=== PATIENT | male | born 1945 | race Caucasian/White ===

== ENCOUNTER 2022-11-01 08:12 | Emergency (ER) | payer MEDICARE, OTHER ==
[2022-11-01] MEDS ORDERED: PANTOPRAZOLE 40 MG (PROTONIX) VIAL IV STA (08:31)
[2022-11-01] MEDS ORDERED: NS IV 1000 ML 1,000 ML IV STA ×2 (08:31→11:15)
--- NOTE | 2022-11-01 08:34 | ED GI ---
General Stated Complaint: GI BLEED Source of Information: Patient History of Present Illness Date Seen by Provider: Nov 01, 2022 Time Seen by Provider: 08:12 Initial Comments 77-year-old male presenting from [facility] by EMS after being found this morning with dark-colored emesis and dark tarry stools. Patient had dried dark tarry stool in various areas especially on his legs and groin. He did actively vomit some dark-colored clot appearing emesis. He did tell the nurses that he had a fall yesterday and is complaining of left shoulder pain. He takes Plavix and aspirin for peripheral arterial disease. He also has a history of high blood pressure, dementia, high cholesterol. From review of his paperwork from [facility] he has DNR and he has a power of addiction psychiatrist. He complains of some intermittent epigastric abdominal pain. Timing/Duration: 12-24 Hours Location: Epigastric Associated Symptoms: No Headache; Nausea/Vomiting, Shortness of Air, Weakness Allergies and Home Medications Allergies Coded Allergies: No Known Drug Allergies (Unverified , 11/01/22) Patient Home Medication List Home Medication List Reviewed: Yes Review of Systems Review of Systems Constitutional: weakness EENTM: No Symptoms Reported Respiratory: Shortness of Air Cardiovascular: No Symptoms Reported Gastrointestinal: See HPI, Abdominal Pain (intermittent), Nausea, Rectal Bleeding (melena), Vomiting (dark colored emesis) Genitourinary: No Symptoms Reported Musculoskeletal: no symptoms reported Other Comments Unable to obtain full ROS due to patient having dementia and not able to reliably answer all questions Past Fbfopxe-Uvmwbb-Bbebke Hx Patient Social History Tobacco Use?: No Use of E-Cig and/or Vaping dev: No Substance use?: No Past Medical History Surgery/Hospitalization HX: Dementia, Peripheral arterial disease, Hypertension, BPH, Hyperchlesterolemia, GI Bleed October 2022, COPD Physical Exam Vital Signs Vital Signs - First Documented 11/01/22 08:15 Temp 36.5 Pulse 89 Resp 16 B/P (MAP) 91/52 (65) Pulse Ox 100 O2 Delivery Room Air Capillary Refill : Height/Weight/BMI Height: '" Weight: lbs. oz. kg; BMI Method: General Appearance: other (chronically ill appearing) HEENT: PERRL/EOMI; No pharynx normal (appears to have dried blood on lips and in mouth) Respiratory: lungs clear, no respiratory distress, no accessory muscle use, decreased breath sounds Cardiovascular: normal peripheral pulses, regular rate, rhythm Gastrointestinal: normal bowel sounds, soft, no pulsatile mass; No distended, No guarding, No rebound; tenderness (mild epigastric pain with palpation) Rectal: black stool, heme positive stool Extremities: normal capillary refill, other (complaint of pain with palpation and movement of left shoulder/arm) Neurologic/Psychiatric: alert; No oriented x 3 (oriented to self) Skin: cool, pallor Progress/Results/Core Measures Results/Orders Lab Results Laboratory Tests Test 11/01/22 08:35 11/01/22 10:57 Range/Units White Blood Count 14.7 H 4.3-11.0 10^3/uL Red Blood Count 2.37 L 4.30-5.52 10^6/uL Hemoglobin 7.2 L 13.3-17.7 g/dL Hematocrit 22 L 40-54 % Mean Corpuscular Volume 92 80-99 fL Mean Corpuscular Hemoglobin 30 25-34 pg Mean Corpuscular Hemoglobin Concent 33 32-36 g/dL Red Cell Distribution Width 13.6 10.0-14.5 % Platelet Count 209 130-400 10^3/uL Mean Platelet Volume 9.4 9.0-12.2 fL Immature Granulocyte % (Auto) 3 % Neutrophils (%) (Auto) 81 H 42-75 % Lymphocytes (%) (Auto) 11 L 12-44 % Monocytes (%) (Auto) 5 0-12 % Eosinophils (%) (Auto) 0 0-10 % Basophils (%) (Auto) 0 0-10 % Neutrophils # (Auto) 11.9 H 1.8-7.8 10^3/uL Lymphocytes # (Auto) 1.6 1.0-4.0 10^3/uL Monocytes # (Auto) 0.7 0.0-1.0 10^3/uL Eosinophils # (Auto) 0.1 0.0-0.3 10^3/uL Basophils # (Auto) 0.0 0.0-0.1 10^3/uL Immature Granulocyte # (Auto) 0.4 H 0.0-0.1 10^3/uL Neutrophils % (Manual) 74 % Lymphocytes % (Manual) 13 % Monocytes % (Manual) 2 % Metamyelocytes % 2 % Myelocytes % 1 % Band Neutrophils 7 % Reactive Lymphocytes 1 % Toxic Granulation 2+ Platelet Estimate NORMAL Hypochromasia 1+ Microcytosis 1+ Macrocytosis 1+ Prothrombin Time 15.2 H 12.2-14.7 SEC INR Comment 1.1 0.8-1.4 Activated Partial Thromboplast Time 26 24-35 SEC Sodium Level 138 135-145 MMOL/L Potassium Level 4.6 3.6-5.0 MMOL/L Chloride Level 102 98-107 MMOL/L Carbon Dioxide Level 16 L 21-32 MMOL/L Anion Gap 20 H 5-14 MMOL/L Blood Urea Nitrogen 67 H 7-18 MG/DL Creatinine 2.05 H 0.60-1.30 MG/DL Estimat Glomerular Filtration Rate 32 BUN/Creatinine Ratio 33 Glucose Level 156 H 70-105 MG/DL Calcium Level 9.2 8.5-10.1 MG/DL Corrected Calcium 9.6 8.5-10.1 MG/DL Total Bilirubin 0.4 0.1-1.0 MG/DL Aspartate Amino Transf (AST/SGOT) 28 5-34 U/L Alanine Aminotransferase (ALT/SGPT) 33 0-55 U/L Alkaline Phosphatase 63 40-136 U/L Total Protein 5.7 L 6.4-8.2 GM/DL Albumin 3.5 3.2-4.5 GM/DL Lipase 52 8-78 U/L Urine Color YELLOW Urine Clarity CLEAR Urine pH 5.0 5-9 Urine Specific [place] >=1.030 1.016-1.022 Urine Protein NEGATIVE NEGATIVE Urine Glucose (UA) NEGATIVE NEGATIVE Urine Ketones NEGATIVE NEGATIVE Urine Nitrite NEGATIVE NEGATIVE Urine Bilirubin NEGATIVE NEGATIVE Urine Urobilinogen 0.2 < = 1.0 MG/DL Urine Leukocyte Esterase NEGATIVE NEGATIVE Urine RBC (Auto) TRACE-I H NEGATIVE Urine RBC 0-2 /HPF Urine WBC 0-2 /HPF Urine Squamous Epithelial Cells 0-2 /HPF Urine Crystals NONE /LPF Urine Bacteria NEGATIVE /HPF Urine Casts PRESENT /LPF Urine Hyaline Casts 25-50 H /LPF Urine Coarse Granular Casts 0-2 H /LPF Urine Mucus SMALL H /LPF Urine Culture Indicated NO My Orders Orders - ZULEIMA FRAGA MD Code/Resuscitation (11/01/22 08:28) Comprehensive Metabolic Panel (11/01/22 08:29) Lipase (11/01/22 08:29) Ua Culture If Indicated (11/01/22 08:29) Ed Iv/Invasive Line Start (11/01/22 08:29) Cbc With Automated Diff (11/01/22 08:29) Protime With Inr (11/01/22 08:29) Partial Thromboplastin Time (11/01/22 08:29) Anne Cath (11/01/22 08:29) Ns Iv 1000 Ml (Sodium Chloride 0.9%) (11/01/22 08:31) Pantoprazole Injection (Protonix Injecti (11/01/22 08:31) Ct Head/Cervical Spine Wo (11/01/22 08:34) Chest 1 View Ap/Pa Only (11/01/22 08:34) Shoulder 3 View Left (11/01/22 08:34) Ondansetron Injection (Zofran Injectio (11/01/22 08:39) Ekg Tracing (11/01/22 09:04) Monitor-Rhythm Ecg Trace Only (11/01/22 09:04) Manual Differential (11/01/22 08:35) Ct Abdomen/Pelvis Wo (11/01/22 09:13) Ns Iv 1000 Ml (Sodium Chloride 0.9%) (11/01/22 11:15) Vital Signs/I&O 11/01/22 08:15 Temp 36.5 Pulse 89 Resp 16 B/P (MAP) 91/52 (65) Pulse Ox 100 O2 Delivery Room Air Admisison Planning May Need Admission (Planning): 08:12 Progress Progress Note #1: Progress Note Potential life-threatening diagnosis of acute GI bleeding, peptic ulcer disease with bleeding, colitis, diverticulitis, ischemic bowel. Patient have 1 peripheral IV access from EMS and will have nurses look for second peripheral IV access. Send labs for complete blood count, comprehensive metabolic profile, coagulation factors, lipase, urinalysis. Place Anne catheter to monitor input and output. Initial blood pressure was 105/62. Administer normal saline 1 L IV fluid bolus for hydration, Zofran 4 mg IV for nausea and vomiting, pantoprazole 80 mg IV for GI bleeding. Ordered CT scan of the abdomen and pelvis with IV contrast provided his renal function is good enough to take contrast. CT scan of the head without IV contrast since he reported having a fall yesterday and is taking Plavix and aspirin. Single view chest x-ray looking for acute process with patient complaining of some shortness of breath. Left shoulder x-rays looking for signs of acute fracture or bony abnormality since he reports pain with movement and says that he had a fall yesterday. Progress Note #2: Time: 09:35 Progress Note Blood count shows an elevated white blood cell count of 14.7 with a normal differential. His hemoglobin was low at 7.2 to go with anemia and acute GI bleed. He had normal platelets of 209. There is no previous labs for comparison to know what his baseline hemoglobin is. His comprehensive metabolic profile shows elevated BUN to 67 which could be from dehydration as well as a GI bleed. He also has elevated creatinine to 2.05. Again there is no baseline for comparison. He has mild elevation of his glucose to 156. His lipase and LFTs were in a normal range and not elevated. His coagulation factors were not showing coagulopathy. His blood pressure has been 90 systolic to 105 systolic. With this he still was alert and answering questions. IV fluids continue to infuse as he might be dehydrated as well as having the GI bleeding. I updated his about the patient and findings so far. She said that he did have some vomiting last week and she thought that it was blood but it resolved quickly and he had no further vomiting. He has had issues with dehydration before and usually is admitted to [facility] or [facility]. I advised her that he does appear to be dehydrated in addition to having the GI bleeding currently. She was agreeable to transfusion and medical treatment for his GI bleeding but did request transfer to [place] or [place] if possible since he has records there and it would be closer for her from [place]. I called [facility] transfer line and had to leave a message asking them to call me back about possible admit to [facility] in [place] or [facility] in [place]. 1005 I had not heard back from the transfer nurse at [facility] so I tried calling [facility] directly as I was not sure what sort of bed situation they have there. I spoke with the ED doctor and he advised me that they did not have any ICU beds at [facility] so I would need to check with [facility] or [facility] in [place] as they would not have capability or capacity to take the patient in [facility]. 1009 I called the transfer line back at [facility] and spoke with DEREK Rowan. She apologized for the wait as she had not had a chance to call me back yet. I gave her basic information on the patient about him having GI bleeding and needed ICU or at least telemetry and GI services. She will check with nursing supervisor ride assembly to see if they have beds and if so will have hospitalist call me, otherwise she will call back to let me know they do not have capacity or capability to accept patient in transfer. In the meantime will order additional IV fluids for patient while waiting on a call back and imaging results. Progress Note #3: Time: 10:11 Progress Note My personal interpretation and review of Chest xray shows no effusion but has chronic lung disease consistent with COPD and left shoulder show no acute fracture or dislocation. I did not appreciate acute intracranial hemorrhage or fractures on CT head and cervical spine without contrast. His blood pressure has improved with IVF hydration as he finished having the 1 Liter of NS from EMS infuse and an additional Liter of NS bolus will be started here. He has had no further emesis or melanotic stools since he first arrived in the ED. Blood pressure had gotten down to around 90 systolic but now is 110/62. awaiting call back from [facility] to determine if he can go there or not. Progress Note #4: Time: 10:47 Progress Note D/w Dr. Garcia, hospitalist at [facility]. Reviewed patient presenting with hypotension, tachycardia and acute gi bleeding. He had hemo globin of 7.2 and elevated BUN to 67 that could be from dehydration and GI bleeding. Cr up to 2.05 and unknown baseline. No acute ischemic bowel appearance or acute process on imaging to account for his GI bleeding. he has had improvement in his blood pressure and heart rate with the IVF support. He was not transfused here as we only have uncross matched blood for trauma patient si tuation in addition to his improvement with IV fluid hydration. She accepted him for transfer and will let hospital know so they can get a bed assignment for us. Blood pressure now up to 124-130 over 55-62. Will continue IVF at a maintenance rate after the 2nd L bolus of NS finishes here. Cardiac telemetry monitoring now shows heart rate came down from 110s sinus tachycardia to 80s sinus rhythm. 1115 urinalysis shows elevated specific gravity greater than 1.035. This would go along with dehydration. There is no signs of infection such as nitrites, leukocyte esterase or white blood cells with bacteria. Initial ECG Impression Date: Nov 01, 2022 Initial ECG Impression Time: 11:11 Initial ECG Rate: 87 Initial ECG Rhythm: Normal Sinus Initial ECG Comparisson: No Previous ECG Available Comment My personal interpretation review shows his electrocardiogram has a sinus rhythm with occasional supraventricular premature complexes and a heart rate of 87 bpm. NE interval [address] elevation. QT intervals 385 ms with a QTc interval 429 ms. There is no prior tracing available for comparison. Diagnostic Imaging Diagonstic Imaging: CT Plain Films/CT/US/NM/MRI: c-spine, head Comments [facility] [place] NAME: NAVEEN VERA [facility] REC#: [id number] PT STATUS: REG ER : 1945 PHYSICIAN: ZULEIMA FRAGA MD ADMIT DATE: 11/01/22/ER FS Signed Date of Exam:11/01/22 CT HEAD/CERVICAL SPINE WO PROCEDURE: CT head and CT cervical spine without contrast. TECHNIQUE: Multiple contiguous axial images were obtained through the brain and cervical spine without the use of intravenous contrast. Sagittal and coronal reformations through the cervical spine were then performed. Auto Exposure Controls were utilized during the CT exam to meet ALARA standards for radiation dose reduction. INDICATION: Altered mental status. Fall. Head and neck pain. On blood thinners. COMPARISON: None. FINDINGS: CT HEAD: No large acute territorial ischemia, mass, or hemorrhage. No midline shift or mass effect. Decreased attenuation is seen in the periventricular and subcortical white matter. The ventricles and cortical sulci are prominent. The basilar cisterns are patent and unremarkable. The calvarium is intact. Mucosal thickening is seen in the paranasal sinuses. The mastoid air cells are clear. CT CERVICAL SPINE: No acute fracture or dislocation is seen in the cervical spine. No focal osseous lesions. Vertebral body heights are well-maintained. There is grade 1 anterolisthesis of C4 on C5. The craniocervical junction is well-maintained. Mild degenerative changes are seen in the cervical spine with disc/osteophyte complexes and uncovertebral arthropathy. Soft tissues of the neck are unremarkable. IMPRESSION: 1. No hemorrhage or focal intra-axial mass. No CT evidence of large acute territorial ischemia. 2. No acute fracture or dislocation in the cervical spine. 3. Generalized parenchymal volume loss with scattered chronic microvascular disease. 4. Grade 1 anterolisthesis of C4 on C5. 5. Paranasal sinus disease. Dictated by: Dictated on workstation # [id number] Dict: 11/01/22 1000 Trans: 11/01/22 1005 [id number] Interpreted by: KADI CHOI DO Electronically signed by: KADI CHOI DO 11/01/22 1005 Reviewed: Reviewed by Az Diagonstic Imaging: Xray Plain Films/CT/US/NM/MRI: chest Comments [facility] [place] NAME: NAVEEN VERA [facility] REC#: [id number] PT STATUS: REG ER : 1945 PHYSICIAN: ZULEIMA FRAGA MD ADMIT DATE: 11/01/22/ER FS Draft Date of Exam:11/01/22 CHEST 1 VIEW AP/PA ONLY CLINICAL INDICATION: Patient with shortness of breath and vomiting blood. EXAM: Portable chest x-ray, upright view. COMPARISON: None. FINDINGS: Lungs/pleura: There are amorphous patchy airspace opacities involving both lung bases which may represent atelectasis versus infiltrates. There are sutures overlying the right upper lobe region. There is no pneumothorax. There is no pleural effusion. Mediastinum: Unremarkable. Pulmonary vasculature: Unremarkable. Heart: Unremarkable. Bones/extrathoracic soft tissue: There are degenerative spurs involving the thoracic spine. IMPRESSION: There are amorphous airspace opacities in both lung bases, likely representing atelectasis versus infiltrates. Dictated on workstation # [id number] Dict: 11/01/22 1004 Trans: 11/01/22 1007 [id number] Interpreted by: GABRIELLE SOSA MD Electronically signed by: Reviewed: Reviewed by Az Diagonstic Imaging: CT Plain Films/CT/US/NM/MRI: abdomen, pelvis Comments [email or web address] [place] [place] NAME: NAVEEN VERA [facility] REC#: [id number] PT STATUS: REG ER : 1945 PHYSICIAN: ZULEIMA FRAGA MD ADMIT DATE: 11/01/22/ER FS Draft Date of Exam:11/01/22 CT ABDOMEN/PELVIS WO PROCEDURE: CT abdomen and pelvis without contrast. TECHNIQUE: Multiple contiguous axial images were obtained through the abdomen and pelvis without the use of intravenous contrast. Auto Exposure Controls were utilized during the CT exam to meet ALARA standards for radiation dose reduction. INDICATION: Melena. Hematemesis. Epigastric pain. COMPARISON: None. FINDINGS: Examination is limited by respiratory motion. Emphysematous changes in the lung bases. Low attenuating blood pool, consistent with anemia. Indeterminate hypoenhancing lesion in the hepatic dome measuring up to 1.8 cm. Calcified granulomas in the spleen. Aortobiiliac stent graft. Urinary bladder is decompressed by a Anne catheter. The gallbladder, pancreas, adrenals, kidneys, and collecting systems are negative on this noncontrast exam. The appendix is not identified and may be surgically absent. No suspicious inflammatory findings in the region of the cecum. No free intraperitoneal air or fluid. No lymphadenopathy. No evidence of bowel obstruction. No acute osseous findings. Spondylotic changes likely result in multilevel high-grade spinal canal stenosis. IMPRESSION: 1. No acute CT findings in the abdomen or pelvis. 2. Indeterminate hypoattenuating lesion in the hepatic dome may represent a benign cyst or hemangioma but is incompletely characterized on this exam. Given the motion, it is hard to determine if this is well-circumscribed and a metastatic lesion could not be excluded. This could be further evaluated with ultrasound. 3. Hypoattenuating blood pool, consistent with anemia. Dictated on workstation # [id number] Dict: 11/01/22 1003 Trans: 11/01/22 1011 [id number] Interpreted by: ALMA HERNÁNDEZ MD Electronically signed by: Reviewed: Reviewed by Me Diagonstic Imaging: Xray Plain Films/CT/US/NM/MRI: other (Left shoulder) Comments [facility] [place] NAME: NAVEEN VERA [facility] REC#: [id number] PT STATUS: REG ER : 1945 PHYSICIAN: ZULEIMA FRAGA MD ADMIT DATE: 11/01/22/ER FS Draft Date of Exam:11/01/22 SHOULDER 3 VIEW LEFT CLINICAL INDICATION: Patient reported a fall last night with pain in the shoulder. EXAM: X-ray of the left shoulder, 3 views. COMPARISON: None. FINDINGS: There is no acute fracture or dislocation. There are moderately hypertrophic spurs involving the left acromioclavicular region. There are subacromial spurs. There is spurring of the inferior glenoid region and proximal humeral head/neck junction region. IMPRESSION: There is degenerative disease involving the left shoulder with no acute fracture or dislocation. Dictated on workstation # [id number] Dict: 11/01/22 1006 Trans: 11/01/22 1009 [id number] Interpreted by: GABRIELLE SOSA MD Electronically signed by: Reviewed: Reviewed by Me Critical Care Note Critical Care Total Time (minutes) 45 minutes Progress I spent at least 45 minutes in direct critical care time with the patient. Time excludes separately billable procedures. Time spent obtaining history from patient, custodial, EMS, spouse, ordering tests and reviewing results, ordering interventions and reviewing response, discussion with consultants, documentation in the chart. Patient was at risk of cardiopulmonary arrest with his acute GI bleeding and required my immediate direct care to help stabilize the patient and monitor for worsening condition. Departure Impression Primary Impression: Acute gastrointestinal bleeding Additional Impressions: Black tarry stools Hematemesis Qualified Codes: K92.0 - Hematemesis Disposition: XF [facility] Condition: Critical Transfer Transfer Reason: Exceeds level of care (No closer facilities with GI capabilities and ICU beds) Time Spoke to Accepting Phy: 10:47 Transfer Progress Notes D/w Dr. Garcia, hospitalist at [facility]. Reviewed patient presenting with hypotension, tachycardia and acute gi bleeding. He had hemoglobin of 7.2 and elevated BUN to 67 that could be from dehydration and GI bleeding. Cr up to 2.05 and unknown baseline. No acute ischemic bowel appearance or acute process on imaging to account for his GI bleeding. he has had improvement in his blood pressure and heart rate with the IVF support. He was not transfused here as we only have uncross matched blood for trauma patient situation in addition to his improvement with IV fluid hydration. She accepted him for transfer and will let hospital know so they can get a bed assignment for us. Transfer Facility: [facility] Method of Transfer: EMS ZULEIMA FRAGA MD Nov 01, 2022 08:34
[2022-11-01] MEDS ORDERED: ONDANSETRON 4 MG/2 ML (SDV) Z0FRAN IVP STA (08:39)
[2022-11-01 08:47] LABS: BASOPHILS % (AUTO) 0 % (0-10); EOSINOPHILS # (AUTO) 0.1 10^3/uL (0.0-0.3); EOSINOPHILS % (AUTO) 0 % (0-10); HEMATOCRIT 22 % (40-54); HEMOGLOBIN 7.2 g/dL (13.3-17.7); LYMPHOCYTES # (AUTO) 1.6 10^3/uL (1.0-4.0); LYMPHOCYTES % (AUTO) 11 % (12-44); MEAN CORPUSCULAR HEMOGLOBIN 30 pg (25-34); MEAN CORPUSCULAR HGB CONC 33 g/dL (32-36); MEAN CORPUSCULAR VOLUME 92 fL (80-99); MEAN PLATELET VOLUME 9.4 fL (9.0-12.2); MONOCYTES # (AUTO) 0.7 10^3/uL (0.0-1.0); MONOCYTES % (AUTO) 5 % (0-12); NEUTROPHILS # (AUTO) 11.9 10^3/uL (1.8-7.8); NEUTROPHILS % (AUTO) 81 % (42-75); PLATELET COUNT 209 10^3/uL (130-400); WHITE BLOOD COUNT 14.7 10^3/uL (4.3-11.0)
[2022-11-01 09:05] LABS: INR 1.1 (0.8-1.4); PROTHROMBIN TIME PATIENT 15.2 SEC (12.2-14.7)
[2022-11-01 09:08] LABS: BILIRUBIN,TOTAL 0.4 MG/DL (0.1-1.0); CALCIUM 9.2 MG/DL (8.5-10.1); CREATININE SERUM 2.05 MG/DL (0.60-1.30); POTASSIUM 4.6 MMOL/L (3.6-5.0)
[2022-11-01 09:09] LABS: ALBUMIN 3.5 GM/DL (3.2-4.5); TOTAL PROTEIN 5.7 GM/DL (6.4-8.2)
[2022-11-01 09:22] LABS: BAND NEUTROPHILS 7 %; LYMPHOCYTES % (MANUAL) 13 %; METAMYELOCYTES % 2 %; MONOCYTES % (MANUAL) 2 %; MYELOCYTES % 1 %; NEUTROPHILS % (MANUAL) 74 %; REACTIVE LYMPHOCYTES 1 %
[2022-11-01 09:23] LABS: HYPOCHROMASIA 1+; MICROCYTOSIS 1+; PLATELET ESTIMATE NORMAL; TOXIC GRANULATION/VACUOLAZATIO 2+
--- NOTE | 2022-11-01 10:04 | Diagnostic Imaging Report ---
PROCEDURE: CT head and CT cervical spine without contrast. TECHNIQUE: Multiple contiguous axial images were obtained through the brain and cervical spine without the use of intravenous contrast. Sagittal and coronal reformations through the cervical spine were then performed. Auto Exposure Controls were utilized during the CT exam to meet ALARA standards for radiation dose reduction. INDICATION: Altered mental status. Fall. Head and neck pain. On blood thinners. COMPARISON: None. FINDINGS: CT HEAD: No large acute territorial ischemia, mass, or hemorrhage. No midline shift or mass effect. Decreased attenuation is seen in the periventricular and subcortical white matter. The ventricles and cortical sulci are prominent. The basilar cisterns are patent and unremarkable. The calvarium is intact. Mucosal thickening is seen in the paranasal sinuses. The mastoid air cells are clear. CT CERVICAL SPINE: No acute fracture or dislocation is seen in the cervical spine. No focal osseous lesions. Vertebral body heights are well-maintained. There is grade 1 anterolisthesis of C4 on C5. The craniocervical junction is well-maintained. Mild degenerative changes are seen in the cervical spine with disc/osteophyte complexes and uncovertebral arthropathy. Soft tissues of the neck are unremarkable. IMPRESSION: 1. No hemorrhage or focal intra-axial mass. No CT evidence of large acute territorial ischemia. 2. No acute fracture or dislocation in the cervical spine. 3. Generalized parenchymal volume loss with scattered chronic microvascular disease. 4. Grade 1 anterolisthesis of C4 on C5. 5. Paranasal sinus disease. Dictated by: Dictated on workstation # [id number]
--- NOTE | 2022-11-01 10:08 | Diagnostic Imaging Report ---
CLINICAL INDICATION: Patient with shortness of breath and vomiting blood. EXAM: Portable chest x-ray, upright view. COMPARISON: None. FINDINGS: Lungs/pleura: There are amorphous patchy airspace opacities involving both lung bases which may represent atelectasis versus infiltrates. There are sutures overlying the right upper lobe region. There is no pneumothorax. There is no pleural effusion. Mediastinum: Unremarkable. Pulmonary vasculature: Unremarkable. Heart: Unremarkable. Bones/extrathoracic soft tissue: There are degenerative spurs involving the thoracic spine. IMPRESSION: There are amorphous airspace opacities in both lung bases, likely representing atelectasis versus infiltrates. Dictated by: Dictated on workstation # [id number]
--- NOTE | 2022-11-01 10:10 | Diagnostic Imaging Report ---
CLINICAL INDICATION: Patient reported a fall last night with pain in the shoulder. EXAM: X-ray of the left shoulder, 3 views. COMPARISON: None. FINDINGS: There is no acute fracture or dislocation. There are moderately hypertrophic spurs involving the left acromioclavicular region. There are subacromial spurs. There is spurring of the inferior glenoid region and proximal humeral head/neck junction region. IMPRESSION: There is degenerative disease involving the left shoulder with no acute fracture or dislocation. Dictated by: Dictated on workstation # [id number]
--- NOTE | 2022-11-01 10:12 | Diagnostic Imaging Report ---
PROCEDURE: CT abdomen and pelvis without contrast. TECHNIQUE: Multiple contiguous axial images were obtained through the abdomen and pelvis without the use of intravenous contrast. Auto Exposure Controls were utilized during the CT exam to meet ALARA standards for radiation dose reduction. INDICATION: Melena. Hematemesis. Epigastric pain. COMPARISON: None. FINDINGS: Examination is limited by respiratory motion. Emphysematous changes in the lung bases. Low attenuating blood pool, consistent with anemia. Indeterminate hypoenhancing lesion in the hepatic dome measuring up to 1.8 cm. Calcified granulomas in the spleen. Aortobiiliac stent graft. Urinary bladder is decompressed by a Anne catheter. The gallbladder, pancreas, adrenals, kidneys, and collecting systems are negative on this noncontrast exam. The appendix is not identified and may be surgically absent. No suspicious inflammatory findings in the region of the cecum. No free intraperitoneal air or fluid. No lymphadenopathy. No evidence of bowel obstruction. No acute osseous findings. Spondylotic changes likely result in multilevel high-grade spinal canal stenosis. IMPRESSION: 1. No acute CT findings in the abdomen or pelvis. 2. Indeterminate hypoattenuating lesion in the hepatic dome may represent a benign cyst or hemangioma but is incompletely characterized on this exam. Given the motion, it is hard to determine if this is well-circumscribed and a metastatic lesion could not be excluded. This could be further evaluated with ultrasound. 3. Hypoattenuating blood pool, consistent with anemia. Dictated by: Dictated on workstation # [id number]
[2022-11-01 11:01] LABS: BILIRUBIN,URINE NEGATIVE (NEGATIVE); CLARITY,URINE CLEAR; COLOR,URINE YELLOW; GLUCOSE, URINE (UA) NEGATIVE (NEGATIVE); KETONES,URINE NEGATIVE (NEGATIVE); LEUKOCYTE ESTERASE ,URINE NEGATIVE (NEGATIVE); NITRITE,URINE NEGATIVE (NEGATIVE); PROTEIN,URINE NEGATIVE (NEGATIVE)
[2022-11-01 11:11] LABS: BACTERIA,URINE NEGATIVE /HPF; HYALINE CASTS, URINE 25-50 /LPF; RBC,URINE 0-2 /HPF; SQUAMOUS EPITHELIAL CELL,UR 0-2 /HPF; WBC,URINE 0-2 /HPF
[2022-11-01 12:07] VITALS: BP 104/56
== END 2022-11-01 12:29 | disposition short-term general hospital (02) ==
LOC: ER FS 08:22
DX: K92.0 Hematemesis (principal); K92.1 Melena; D72.829 Elevated white blood cell count, unspecified; D64.9 Anemia, unspecified; R00.0 Tachycardia, unspecified; R03.0 Elevated blood-pressure reading, without diagnosis of hypertension; R79.89 Other specified abnormal findings of blood chemistry; I73.9 Peripheral vascular disease, unspecified; Z79.82 Long term (current) use of aspirin; Z79.02 Long term (current) use of antithrombotics/antiplatelets
CPT/HCPCS: 36415; 51702; 70450; 71045; 72125; 73030; 74176; 80053; 81000; 83690; 85007; 85027; 85610; 85730; 93005; 93041

== ENCOUNTER 2023-01-23 17:31 | Emergency (ER) | payer MEDICARE ==
[~2023-01-23] VITALS: Ht 182.8 cm; Wt 75.0 kg
[2023-01-23 17:51] LABS: BASOPHILS % (AUTO) 1 % (0-10); EOSINOPHILS # (AUTO) 0.9 10^3/uL (0.0-0.3); EOSINOPHILS % (AUTO) 13 % (0-10); HEMATOCRIT 36 % (40-54); HEMOGLOBIN 11.5 g/dL (13.3-17.7); LYMPHOCYTES # (AUTO) 1.6 10^3/uL (1.0-4.0); LYMPHOCYTES % (AUTO) 24 % (12-44); MEAN CORPUSCULAR HEMOGLOBIN 28 pg (25-34); MEAN CORPUSCULAR HGB CONC 32 g/dL (32-36); MEAN CORPUSCULAR VOLUME 88 fL (80-99); MEAN PLATELET VOLUME 8.9 fL (9.0-12.2); MONOCYTES # (AUTO) 0.7 10^3/uL (0.0-1.0); MONOCYTES % (AUTO) 10 % (0-12); NEUTROPHILS # (AUTO) 3.5 10^3/uL (1.8-7.8); NEUTROPHILS % (AUTO) 52 % (42-75); PLATELET COUNT 123 10^3/uL (130-400); WHITE BLOOD COUNT 6.7 10^3/uL (4.3-11.0)
[2023-01-23 17:53] LABS: BILIRUBIN,URINE NEGATIVE (NEGATIVE); CLARITY,URINE CLEAR; COLOR,URINE YELLOW; GLUCOSE, URINE (UA) NEGATIVE (NEGATIVE); KETONES,URINE NEGATIVE (NEGATIVE); LEUKOCYTE ESTERASE ,URINE NEGATIVE (NEGATIVE); NITRITE,URINE NEGATIVE (NEGATIVE); PROTEIN,URINE NEGATIVE (NEGATIVE)
--- NOTE | 2023-01-23 17:55 | ED General ---
General Chief Complaint: General Problems/Pain Stated Complaint: FALL Source of Information: Patient, EMS History of Present Illness Date Seen by Provider: Jan 23, 2023 Time Seen by Provider: 17:31 Initial Comments 77-year-old male presenting by EMS from [facility] after he was found unresponsive on the floor where he had slid out of his chair. EMS reports that he was starting to respond when they arrived on scene but that he was not speaking initially. In route to the emergency department he did start to speak. Initially his pupils were pinpoint for EMS but are now normal and responsive. They did administer a dose of Narcan in case he had any opiates on board. That did not seem to make any change with his mentation and alertness. No obvious trauma on exam of the patient. He has dementia and is answering questions but is not consistent with his answers. Location Injury Occurred: [facility] Timing/Duration: 1/2 Hour Associated Systoms: No Chest Pain, No Cough, No Diaphoresis, No Fever/Chills, No Headaches, No Loss of Appetite, No Malaise, No Nausea/Vomiting, No Rash, No Shortness of Air Allergies and Home Medications Allergies Coded Allergies: No Known Drug Allergies (Unverified , 11/01/22) Patient Home Medication List Home Medication List Reviewed: Yes Review of Systems Review of Systems Constitutional: No chills, No fever EENTM: no symptoms reported Respiratory: no symptoms reported Cardiovascular: no symptoms reported Gastrointestinal: no symptoms reported Genitourinary: incontinence (incontinent of urine on presentation of EMS) Musculoskeletal: no symptoms reported Skin: no symptoms reported Psychiatric/Neurological: See HPI Past Ofpuxnb-Leoydl-Dunadp Hx Patient Social History Tobacco Use?: No Use of E-Cig and/or Vaping dev: No Substance use?: No Alcohol Use?: No Past Medical History Surgery/Hospitalization HX: Dementia, Peripheral arterial disease, Hypertension, BPH, Hyperchlesterolemia, GI Bleed October 2022, COPD Physical Exam Vital Signs Vital Signs - First Documented 01/23/23 17:31 Temp 36.3 Pulse 12 Resp 62 B/P (MAP) 143/66 (91) Pulse Ox 95 O2 Delivery Room Air Capillary Refill : Height, Weight, BMI Height: '" Weight: lbs. oz. kg; BMI Method: General Appearance: No Apparent Distress, WD/WN HEENT: PERRL/EOMI, Pharynx Normal Neck: Full Range of Motion, Normal Inspection, Non Tender, Supple Respiratory: Chest Non Tender, Lungs Clear, Normal Breath Sounds, No Accessory Muscle Use, No Respiratory Distress Cardiovascular: Regular Rate, Rhythm, Normal Peripheral Pulses Gastrointestinal: Normal Bowel Sounds, No Pulsatile Mass, Non Tender, Soft Rectal: Deferred Extremity: Normal Capillary Refill, Normal Inspection, No Pedal Edema Neurologic/Psychiatric: Alert; No Oriented x3 (oriented to self only); Normal Mood/Affect, psychopaedic nurse II-XII Norm as Tested Skin: Normal Color, Warm/Dry Progress/Results/Core Measures Suspected Sepsis SIRS Temperature: Pulse: Respiratory Rate: Laboratory Tests 01/23/23 17:40: White Blood Count 6.7 Blood Pressure / Mean: Laboratory Tests 01/23/23 17:40: Creatinine 1.27, INR Comment 1.0, Platelet Count 123L, Total Bilirubin 0.4 Results/Orders Lab Results Laboratory Tests Test 01/23/23 17:38 01/23/23 17:40 Range/Units Urine Color YELLOW Urine Clarity CLEAR Urine pH 6.0 5-9 Urine Specific [place] 1.015 L 1.016-1.022 Urine Protein NEGATIVE NEGATIVE Urine Glucose (UA) NEGATIVE NEGATIVE Urine Ketones NEGATIVE NEGATIVE Urine Nitrite NEGATIVE NEGATIVE Urine Bilirubin NEGATIVE NEGATIVE Urine Urobilinogen 1.0 < = 1.0 MG/DL Urine Leukocyte Esterase NEGATIVE NEGATIVE Urine RBC (Auto) 2+ H NEGATIVE Urine RBC 10-25 H /HPF Urine WBC 0-2 /HPF Urine Renal Epithelial Cells 2-5 /HPF Urine Crystals NONE /LPF Urine Bacteria NEGATIVE /HPF Urine Casts NONE /LPF Urine Mucus SMALL H /LPF Urine Culture Indicated NO Urine Opiates Screen NEGATIVE NEGATIVE Urine Oxycodone Screen NEGATIVE NEGATIVE Urine Methadone Screen NEGATIVE NEGATIVE Urine Propoxyphene Screen NEGATIVE NEGATIVE Urine Barbiturates Screen NEGATIVE NEGATIVE Ur Tricyclic Antidepressants Screen NEGATIVE NEGATIVE Urine Phencyclidine Screen NEGATIVE NEGATIVE Urine Amphetamines Screen NEGATIVE NEGATIVE Urine Methamphetamines Screen NEGATIVE NEGATIVE Urine Benzodiazepines Screen NEGATIVE NEGATIVE Urine Cocaine Screen NEGATIVE NEGATIVE Urine Cannabinoids Screen NEGATIVE NEGATIVE White Blood Count 6.7 4.3-11.0 10^3/uL Red Blood Count 4.09 L 4.30-5.52 10^6/uL Hemoglobin 11.5 L 13.3-17.7 g/dL Hematocrit 36 L 40-54 % Mean Corpuscular Volume 88 80-99 fL Mean Corpuscular Hemoglobin 28 25-34 pg Mean Corpuscular Hemoglobin Concent 32 32-36 g/dL Red Cell Distribution Width 13.8 10.0-14.5 % Platelet Count 123 L 130-400 10^3/uL Mean Platelet Volume 8.9 L 9.0-12.2 fL Immature Granulocyte % (Auto) 0 % Neutrophils (%) (Auto) 52 42-75 % Lymphocytes (%) (Auto) 24 12-44 % Monocytes (%) (Auto) 10 0-12 % Eosinophils (%) (Auto) 13 H 0-10 % Basophils (%) (Auto) 1 0-10 % Neutrophils # (Auto) 3.5 1.8-7.8 10^3/uL Lymphocytes # (Auto) 1.6 1.0-4.0 10^3/uL Monocytes # (Auto) 0.7 0.0-1.0 10^3/uL Eosinophils # (Auto) 0.9 H 0.0-0.3 10^3/uL Basophils # (Auto) 0.0 0.0-0.1 10^3/uL Immature Granulocyte # (Auto) 0.0 0.0-0.1 10^3/uL Neutrophils % (Manual) 46 % Lymphocytes % (Manual) 26 % Monocytes % (Manual) 9 % Eosinophils % (Manual) 15 % Basophils % (Manual) 1 % Band Neutrophils 3 % Platelet Estimate DECREASED Percent Immature Platelet Fraction 1.8 0.0-7.6 % Hypochromasia 1+ Crenated Cell SLIGHT Prothrombin Time 13.7 12.2-14.7 SEC INR Comment 1.0 0.8-1.4 Activated Partial Thromboplast Time 28 24-35 SEC Sodium Level 139 135-145 MMOL/L Potassium Level 4.2 3.6-5.0 MMOL/L Chloride Level 106 98-107 MMOL/L Carbon Dioxide Level 22 21-32 MMOL/L Anion Gap 11 5-14 MMOL/L Blood Urea Nitrogen 19 H 7-18 MG/DL Creatinine 1.27 0.60-1.30 MG/DL Estimat Glomerular Filtration Rate 57 BUN/Creatinine Ratio 15 Glucose Level 108 H 70-105 MG/DL Calcium Level 9.1 8.5-10.1 MG/DL Corrected Calcium 9.3 8.5-10.1 MG/DL Total Bilirubin 0.4 0.1-1.0 MG/DL Aspartate Amino Transf (AST/SGOT) 17 5-34 U/L Alanine Aminotransferase (ALT/SGPT) 17 0-55 U/L Alkaline Phosphatase 99 40-136 U/L Troponin I < 0.30 <0.30 NG/ML Total Protein 6.1 L 6.4-8.2 GM/DL Albumin 3.7 3.2-4.5 GM/DL Salicylates Level < 0.3 L 5.0-20.0 MG/DL Acetaminophen Level < 10 L 10-30 UG/ML Serum Alcohol < 10 <10 MG/DL My Orders Orders - ZULEIMA FRAGA MD Ua Culture If Indicated (01/23/23 17:36) Cbc With Automated Diff (01/23/23 17:36) Comprehensive Metabolic Panel (01/23/23 17:36) Alcohol (01/23/23 17:36) Drug Screen Stat (Urine) (01/23/23 17:36) Acetaminophen (01/23/23 17:36) Salicylate (01/23/23 17:36) Ekg Tracing (01/23/23 17:36) Ed Iv/Invasive Line Start (01/23/23 17:36) Monitor-Rhythm Ecg Trace Only (01/23/23 17:36) Ct Head Wo (01/23/23 17:36) Straight Cath For Spec.-Adult (01/23/23 17:36) Seizure Precautions (01/23/23 17:36) Manual Differential (01/23/23 17:40) Troponin I Fs (01/23/23 18:05) Protime With Inr (01/23/23 18:05) Partial Thromboplastin Time (01/23/23 18:05) Vital Signs/I&O 01/23/23 01/23/23 17:31 19:01 Temp 36.3 Pulse 12 66 Resp 62 19 B/P (MAP) 143/66 (91) 152/83 Pulse Ox 95 99 O2 Delivery Room Air Room Air Capillary Refill : Progress Note #1: Progress Note Potential diagnosis of syncope, seizure, UTI, vasovagal episode, GI bleed, pneumonia, myocardial infarction. Patient is alert and talking on arrival to the emergency department. Per EMS this is a steady improvement in his mentation and alertness since the arrived on scene at the skilled nursing. He does have dementia and is oriented to self only. He has his son is a [employer] and has a DNR order. He does not have any obvious signs of trauma or injury on exam. Will follow seizure precautions here in the emergency department. Since he was incontinent and unresponsive initially for skilled nursing staff he might have had a seizure or he could have had a syncopal episode. Placed on cardiac battery starter and patient's heart rate sinus rhythm at 60 bpm. Obtain electrocardiogram to further evaluate his rate and rhythm. Order CT scan of the head without contrast to evaluate for any acute pathology to account for his symptoms. EMS had established an IV in route to the ED. Draw labs for complete blood count, comprehensive metabolic profile, alcohol, acetaminophen, salicylate, urinalysis, urine drug screen. Perform a straight cath to obtain urinalysis since the patient had been incontinent and did not have much urine present. Also with his dementia will be difficult to have him provide a clean-catch urine. He was afebrile on arrival to the ED and his blood pressure was normal. Progress Note #2: Time: 18:07 Progress Note Complete blood count does not show elevated WBC count as it is 6.7. Hemoglobin with anemia at 11.5. UA shows a normal specific gravity of 1.015. He has 10-25 red blood cells likely from the catheter used to obtain specimen. There is no bacteria, leukocyte esterase, nitrites indicate an infection. My personal interpretation and review the CT scan of the head does not show any acute bleed or mass. Progress Note #3: Time: 18:46 Progress Note Comprehensive metabolic profile did not show any acute significant electrolyte abnormality. He had mild elevation of his BUN to 19 and creatinine to 1.27. His glucose was normal at 108. Troponin was negative at less than 0.3. Aspirin level was less than 0.3. Alcohol and Tylenol were both less than 10. Coagulation factors were normal without elevation of coagulopathy. Patient had no acute abnormalities on the CT scan of the head according to the radiologist report. Patient has remained alert and responsive at his baseline here in the emergency department. This may have been a vasovagal episode with him having a full bladder. He might of had a seizure but there is no evidence of any injury on exam such as bite yanez on tongue. Will discharge back to [facility] and encourage follow up with pcp for continued concerns. ECG Initial ECG Impression Date: Jan 23, 2023 Initial ECG Impression Time: 17:48 Initial ECG Rate: 58 Initial ECG Rhythm: Normal Sinus Initial ECG Comparisson: Unchanged (similar to 11/01/2022 tracing) Comment Also personal interpretation and review the electrocardiogram shows sinus rhythm with a heart rate of 58 bpm. AR interval [address] elevation. QT interval 422 ms with a QTc interval 420 ms. Overall appears similar to tracing from November 01, 2022. Diagnostic Imaging Diagonstic Imaging: CT Plain Films/CT/US/NM/MRI: head Comments NAME: NAVEEN VERA [facility] REC#: [id number] PT STATUS: REG ER : 1945 PHYSICIAN: ZULEIMA FRAGA MD ADMIT DATE: 01/23/23/ER FS Signed Date of Exam:01/23/23 CT HEAD WO PROCEDURE: CT head without contrast. TECHNIQUE: Multiple contiguous axial images were obtained through the brain without the use of intravenous contrast. Auto Exposure Controls were utilized during the CT exam to meet ALARA standards for radiation dose reduction. DATE: January 23, 2023. COMPARISON: CT head and cervical spine November 01, 2022. INDICATION: 77-year-old male, unresponsive. Seizure. FINDINGS: There is proportional prominence of the ventricles and additional CSF spaces compatible with moderate to severe cerebral volume loss. There is no mass effect or midline shift. There is no acute intracranial hemorrhage. There is no abnormal extra-axial fluid collection. There is nonspecific opacification in the bilateral ethmoidal air cells. There is mucosal thickening of both maxillary sinuses. The mastoid air cells and middle ears are well-aerated bilaterally. IMPRESSION: 1. No identified acute intracranial abnormality. 2. Moderate to severe cerebral volume loss. 3. Nonspecific paranasal sinus opacification. Dictated by: Dictated on workstation # [id number] Dict: 01/23/231802 Trans: 01/23/231815 [facility] [id number] Interpreted by: DARCIE JASSO MD Electronically signed by: DARCIE JASSO MD 01/23/231815 Reviewed: Reviewed by Me (I reviewed the radiologist report at 181 and the also did not see any acute process in the images.) Departure Impression Primary Impression: Vasovagal syncope Additional Impression: Unresponsive episode Disposition: HOME, SELF-CARE Condition: Stable Departure-Patient Inst. Decision time for Depature: 18:51 Referrals: HERNAN RUANO APRN (PCP) Primary Care Physician [facility] (Family) Primary Care Physician Patient Instructions: Fainting, Adult ED, Vasovagal Response (DC) Add. Discharge Instructions: CT scan of the head, Electrocardiogram and labs all appear stable without showing signs of bleeding, stroke, infection. You may have had a fainting episode or vasovagal episode due to having a full bladder. Check back with primary care provider for further concerns/evaluation. All discharge instructions reviewed with patient and/or family. Voiced understanding. ZULEIMA FRAGA MD Jan 23, 2023 17:55
[2023-01-23 18:04] LABS: BACTERIA,URINE NEGATIVE /HPF; WBC,URINE 0-2 /HPF
[2023-01-23 18:06] LABS: AMPHETAMINE SCREEN, URINE NEGATIVE (NEGATIVE); BARBITURATE SCREEN URINE NEGATIVE (NEGATIVE); BENZODIAZEPINES SCREEN URINE NEGATIVE (NEGATIVE); CANNABINOID SCREEN, URINE NEGATIVE (NEGATIVE); COCAINE SCREEN URINE NEGATIVE (NEGATIVE); METHADONE STAT NEGATIVE (NEGATIVE); OPIATE SCREEN URINE NEGATIVE (NEGATIVE); OXYCODONE STAT NEGATIVE (NEGATIVE); PROPOXYPHENE STAT NEGATIVE (NEGATIVE); TRICYCLIC ANTIDEPRESSANTS SCRE NEGATIVE (NEGATIVE)
--- NOTE | 2023-01-23 18:10 | Diagnostic Imaging Report ---
PROCEDURE: CT head without contrast. TECHNIQUE: Multiple contiguous axial images were obtained through the brain without the use of intravenous contrast. Auto Exposure Controls were utilized during the CT exam to meet ALARA standards for radiation dose reduction. DATE: January 23, 2023. COMPARISON: CT head and cervical spine November 01, 2022. INDICATION: 77-year-old male, unresponsive. Seizure. FINDINGS: There is proportional prominence of the ventricles and additional CSF spaces compatible with moderate to severe cerebral volume loss. There is no mass effect or midline shift. There is no acute intracranial hemorrhage. There is no abnormal extra-axial fluid collection. There is nonspecific opacification in the bilateral ethmoidal air cells. There is mucosal thickening of both maxillary sinuses. The mastoid air cells and middle ears are well-aerated bilaterally. IMPRESSION: 1. No identified acute intracranial abnormality. 2. Moderate to severe cerebral volume loss. 3. Nonspecific paranasal sinus opacification. Dictated by: Dictated on workstation # [id number]
[2023-01-23 18:19] LABS: PROTHROMBIN TIME PATIENT 13.7 SEC (12.2-14.7)
[2023-01-23 18:21] LABS: BAND NEUTROPHILS 3 %; BASOPHILS % (MANUAL) 1 %; EOSINOPHILS % (MANUAL) 15 %; LYMPHOCYTES % (MANUAL) 26 %; MONOCYTES % (MANUAL) 9 %; NEUTROPHILS % (MANUAL) 46 %
[2023-01-23 18:22] LABS: CRENATED RBC SLIGHT; HYPOCHROMASIA 1+; PLATELET ESTIMATE DECREASED
[2023-01-23 18:24] LABS: ACETAMINOPHEN < 10 UG/ML (10-30); ALANINE AMINOTRANSFERASE 17 U/L (0-55); ALBUMIN 3.7 GM/DL (3.2-4.5); ALKALINE PHOSPHATASE 99 U/L (40-136); BILIRUBIN,TOTAL 0.4 MG/DL (0.1-1.0); BUN/CREATININE RATIO 15; CALCIUM 9.1 MG/DL (8.5-10.1); CARBON DIOXIDE 22 MMOL/L (21-32); CHLORIDE 106 MMOL/L (98-107); CREATININE SERUM 1.27 MG/DL (0.60-1.30); GFR ESTIMATED 57; GLUCOSE 108 MG/DL (70-105); POTASSIUM 4.2 MMOL/L (3.6-5.0); SALICYLATE < 0.3 MG/DL (5.0-20.0); SODIUM 139 MMOL/L (135-145); TOTAL PROTEIN 6.1 GM/DL (6.4-8.2)
[2023-01-23 19:01] VITALS: BP 152/83
== END 2023-01-23 19:32 | disposition home or self-care (01) ==
LOC: EDUNIT# 17:31 → ER FS 17:32
DX: R40.4 Transient alteration of awareness (principal); R55 Syncope and collapse; D64.9 Anemia, unspecified; F03.90 Unspecified dementia, unspecified severity, without behavioral disturbance, psychotic disturbance, mood disturbance, and anxiety; R79.89 Other specified abnormal findings of blood chemistry
CPT/HCPCS: 36415; 51701; 70450; 80053; 80306; 81000; 84484; 85007; 85027; 85610; 85730; 93005; 93041; 99284; G0480 ×3; 80320; 80329

== ENCOUNTER 2023-03-02 06:20 | Emergency (ER) | payer MEDICARE ==
--- NOTE | 2023-03-02 06:28 | ED GI ---
General Source of Information: EMS, EMS Notes Reviewed, [facility] Records Exam Limitations: No Limitations (TELMA ANDREW DO) History of Present Illness Date Seen by Provider: Mar 02, 2023 Time Seen by Provider: 06:18 Initial Comments 77-year-old male presents to the emergency department via EMS. He has severe dementia and cannot provide any history. EMS reports that he is in a facility that is between assisted living and nursing. He reportedly had significant amounts of bright red blood in his brief this morning. 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 Next blood pressures were in the 90s. Initial blood pressure here is 120 systolic. He does reportedly have a history of GI bleeds. He is on aspirin but no other blood thinning medications. Record review shows history of GI bleed in October at which time is transferred to [facility] for further evaluation. All other systems reviewed and negative except documented per HPI. Voice recognition software was used to help create this chart (TELMA ANDREW DO) Initial Comments Pt was signed out to me by night physician. Patient is able to tell me his name, and keeps saying he has pain and is very tired, but he is unable to give an entire history. Patient has severe abdominal pain and is wincing to palpation. (MAXIMINO SPARKS MD) Allergies and Home Medications Allergies Coded Allergies: No Known Drug Allergies (Unverified , 11/01/22) Patient Home Medication List Home Medication List Reviewed: Yes (MAXIMINO SPARKS MD) Review of Systems Review of Systems Constitutional: see HPI (Unable to provide history) Gastrointestinal: Abdominal Pain, Rectal Bleeding (MAXIMINO SPARKS MD) Past Acfbwrf-Sosmda-Gctzwl Hx Past Medical History Surgery/Hospitalization HX: Dementia, Peripheral arterial disease, Hypertension, BPH, Hyperchlesterolemia, GI Bleed October 2022, COPD (TELMA ANDREW DO) Physical Exam Vital Signs Vital Signs - First Documented 03/02/23 06:29 Temp 36.9 Pulse 61 Resp 18 B/P (MAP) 121/71 (88) (MAXIMINO SPARKS MD) Vital Signs Capillary Refill : (TELMA ANDREW DO) Height/Weight/BMI Height: '" Weight: lbs. oz. kg; 22.00 BMI Method: (TELMA ANDREW DO) General Appearance: no apparent distress HEENT: PERRL/EOMI Neck: full range of motion Respiratory: lungs clear, normal breath sounds Cardiovascular: regular rate, rhythm Gastrointestinal: normal bowel sounds, soft, no organomegaly, tenderness (Patient is wincing and groaning on palpation. Appears to be generalized) Back: no CVA tenderness Neurologic/Psychiatric: alert (Oriented x1 but able to say that he has pain and also relay that he is very tired) Skin: normal color (MAXIMINO SPARKS MD) Focused Exam Lactate Level 03/02/23 08:06: Lactic Acid Level 1.46 (MAXIMINO SPARKS MD) Lactic Acid Level Laboratory Tests Test 03/02/23 08:06 Lactic Acid Level 1.46 MMOL/L (0.50-2.00) (MAXIMINO SPARKS MD) Progress/Results/Core Measures Results/Orders Lab Results Laboratory Tests Test 03/02/23 06:30 03/02/23 07:36 03/02/23 08:06 Range/Units White Blood Count 15.0 H 4.3-11.0 10^3/uL Red Blood Count 4.60 4.30-5.52 10^6/uL Hemoglobin 12.8 L 13.3-17.7 g/dL Hematocrit 39 L 40-54 % Mean Corpuscular Volume 85 80-99 fL Mean Corpuscular Hemoglobin 28 25-34 pg Mean Corpuscular Hemoglobin Concent 33 32-36 g/dL Red Cell Distribution Width 14.8 H 10.0-14.5 % Platelet Count 133 130-400 10^3/uL Mean Platelet Volume 9.4 9.0-12.2 fL Immature Granulocyte % (Auto) 0 % Neutrophils (%) (Auto) 82 H 42-75 % Lymphocytes (%) (Auto) 8 L 12-44 % Monocytes (%) (Auto) 10 0-12 % Eosinophils (%) (Auto) 0 0-10 % Basophils (%) (Auto) 0 0-10 % Neutrophils # (Auto) 12.2 H 1.8-7.8 10^3/uL Lymphocytes # (Auto) 1.2 1.0-4.0 10^3/uL Monocytes # (Auto) 1.5 H 0.0-1.0 10^3/uL Eosinophils # (Auto) 0.0 0.0-0.3 10^3/uL Basophils # (Auto) 0.0 0.0-0.1 10^3/uL Immature Granulocyte # (Auto) 0.1 0.0-0.1 10^3/uL Neutrophils % (Manual) 78 % Lymphocytes % (Manual) 3 % Monocytes % (Manual) 5 % Eosinophils % (Manual) 1 % Basophils % (Manual) 1 % Band Neutrophils 8 % Atypical Lymphocytes 2 % Reactive Lymphocytes 2 % Platelet Estimate NORMAL Elliptocytes SLIGHT Blood Morphology Comment ABNORMAL Prothrombin Time 13.7 12.2-14.7 SEC INR Comment 1.0 0.8-1.4 Sodium Level 138 135-145 MMOL/L Potassium Level 4.4 3.6-5.0 MMOL/L Chloride Level 104 98-107 MMOL/L Carbon Dioxide Level 24 21-32 MMOL/L Anion Gap 10 5-14 MMOL/L Blood Urea Nitrogen 20 H 7-18 MG/DL Creatinine 1.46 H 0.60-1.30 MG/DL Estimat Glomerular Filtration Rate 49 BUN/Creatinine Ratio 14 Glucose Level 121 H 70-105 MG/DL Calcium Level 9.5 8.5-10.1 MG/DL Corrected Calcium 9.7 8.5-10.1 MG/DL Magnesium Level 2.1 1.6-2.4 MG/DL Total Bilirubin 0.7 0.1-1.0 MG/DL Aspartate Amino Transf (AST/SGOT) 14 5-34 U/L Alanine Aminotransferase (ALT/SGPT) 14 0-55 U/L Alkaline Phosphatase 77 40-136 U/L Troponin I < 0.30 <0.30 NG/ML Total Protein 6.4 6.4-8.2 GM/DL Albumin 3.7 3.2-4.5 GM/DL Lipase 21 8-78 U/L Urine Color YELLOW Urine Clarity CLEAR Urine pH 6.5 5-9 Urine Specific [place] 1.015 L 1.016-1.022 Urine Protein TRACE H NEGATIVE Urine Glucose (UA) NEGATIVE NEGATIVE Urine Ketones NEGATIVE NEGATIVE Urine Nitrite NEGATIVE NEGATIVE Urine Bilirubin NEGATIVE NEGATIVE Urine Urobilinogen 1.0 < = 1.0 MG/DL Urine Leukocyte Esterase NEGATIVE NEGATIVE Urine RBC (Auto) 3+ H NEGATIVE Urine RBC 10-25 H /HPF Urine WBC NONE /HPF Urine Squamous Epithelial Cells 0-2 /HPF Urine Crystals NONE /LPF Urine Bacteria TRACE /HPF Urine Casts NONE /LPF Urine Mucus SMALL H /LPF Urine Culture Indicated NO Lactic Acid Level 1.46 0.50-2.00 MMOL/L (MAXIMINO SPARKS MD) My Orders Orders - MAXIMINO SPARKS MD Lactic Acid Analyzer (03/02/23 07:18) Lipase (03/02/23 07:18) Magnesium (03/02/23 07:18) Ua Culture If Indicated (03/02/23 07:18) Troponin I Fs (03/02/23 07:18) Blood Culture (03/02/23 07:19) Chest 1 View Ap/Pa Only (03/02/23 07:19) Ct Abdomen/Pelvis W (03/02/23 07:20) Catheter(Urinary) Insert & Ass 03,15 (03/02/23 07:20) Lidocaine 2% (Urojet) (Xylocaine Urojet) (03/02/23 07:30) Occult Blood Stool (03/02/23 07:25) Ns (Ivpb) (Sodium C... W/Pantoprazole In (03/02/23 07:25) Iohexol Injection (Omnipaque 350 Mg/Ml 1 (03/02/23 07:45) Received Contrast (Hold Metformin- Contr (03/02/23 07:45) Ns (Ivpb) (Sodium Chloride 0.9% Ivpb Bag (03/02/23 07:45) Ns (Ivpb) (Sodium C... W/Pantoprazole In (03/02/23 08:01) Piperacillin Sodium/Tazobactam (Zosyn Vi (03/02/23 09:00) (MAXIMINO SPARKS MD) Medications Given in ED Current Medications Medications Dose Ordered Sig/Katya Route Start Time Stop Time Status Last Admin Dose Admin Iohexol 100 ml ONCE ONCE IV 03/02/23 07:45 03/02/23 07:46 DC 03/02/23 07:55 75 ML Lidocaine HCl 10 ml ONCE ONCE TOP 03/02/23 07:30 03/02/23 07:31 DC 03/02/23 07:35 10 ML Pantoprazole 40 mg ONCE ONCE IV 03/02/23 06:30 03/02/23 06:31 DC 03/02/23 06:45 40 MG Piperacillin Sod/ Tazobactam Sod 4.5 gm/Sodium Chloride 100 ml @ 200 mls/hr ONCE ONCE IV 03/02/23 09:00 03/02/23 09:29 03/02/23 09:12 200 MLS/HR Sodium Chloride 100 ml ONCE ONCE IV 03/02/23 07:45 03/02/23 07:46 DC 03/02/23 07:55 100 ML (MAXIMINO SPARKS MD) Vital Signs/I&O 03/02/23 06:29 Temp 36.9 Pulse 61 Resp 18 B/P (MAP) 121/71 (88) (MAXIMINO SPARKS MD) Progress Progress Note : Time: 06:36 Progress Note attempted to call power of attorney general Mary or Abilio Unphenour. No answer and voicemail unavailable. Patient is currently hemodynamically stable with no active bleeding but will likely require transfer given recent history of significant GI bleed in October. It was requested at his last visit that he be transferred to [facility] as it is closer to his daughter. (TELMA ANDREW DO) Progress Note : Progress Note 1. LOWER GI BLEED: ISCHEMIC COLITIS - Pt signed out to me by night physician. - CT HEAD was negative for any acute findings - I have added CXR and CT Abdomen - CT ABD: Distal colonic mural thickening is consistent with colitis. This is most likely infectious colitis. There is no secondary sign to indicate bowel ischemia although clinical correlation is recommended. There is also significant mural thickening within the urinary bladder suggestive of cystitis. - CXR: see report - WBC is 15 with a left shift - Lactic acid level is normal - Blood cultures sent - CMP unremarkable and troponin is undetectable - UA is negative for infection: - FOB: positive, also dark red blood found in diaper - Anne inserted - Zosyn iv STAT - Protonix 40mg iv was given when pt came to the ER, and drip was started when I started my shift, however, [facility] does not have enough Protonix to give a full drip which would have consisted of 200mg. We only have 100mg to give until more can be sent from our main hospital in [place]. Pt received total of 140mg of protonix only in the ER at [place]. Pt will be needing more Protonix once pt reaches destination hospital. - I have spoken to pt/s son, Abilio Vera ( cell: [phone]) who is pt's proxy, and have confirmed that pt is DNR and DNI. Also, pt's son states that his mentation in the ER is baseline, and if he was able to tell us his name, that is better than he usually does. I also spoke to pt's via phone, and she reports that pt has esophageal ulcers. - Although CT abdomen shows a colitis likely due to infectious colitis, I strongly suspect pt has ischemic colitis, especially since pt has maroon blood in the diaper, lack of diarrhea,and overall presentation. Hb is stable. Vitals have been consistently stable in the ER, and pt is afebrile. - Pt's family want pt afua transferred/admitted to [facility]. Discussed with hospitalist, and accepted for admission. 2. MILD DEHYDRATION: - s. Creatinine is 1.46 - NS IVF bolus (MAXIMINO SPARKS MD) Diagnostic Imaging Diagonstic Imaging: Xray, CT Plain Films/CT/US/NM/MRI: chest, abdomen, head Comments [facility] [place] NAME: NAVEEN VERA [facility] REC#: [id number] PT STATUS: REG ER : 1945 PHYSICIAN: MAXIMINO SPARKS MD ADMIT DATE: 03/02/23/ER FS Draft Date of Exam:03/02/23 CT ABDOMEN/PELVIS W PROCEDURE: CT abdomen and pelvis with contrast. TECHNIQUE: Multiple contiguous axial images were obtained through the abdomen and pelvis after administration of intravenous contrast. Auto Exposure Controls were utilized during the CT exam to meet ALARA standards for radiation dose reduction. All CT scans use one or more of the following dose optimizing techniques: automated exposure control, MA and/or KvP adjustment based on patient size and exam type or iterative reconstruction. INDICATION: Altered mental status with abdominal pain. COMPARISON: 11/01/2022 FINDINGS: There has been an increase in coarse interstitial markings in the lung bases which may be related to fibrosis and possible mild superimposed pneumonitis. Presumed cyst or other benign nodule in the dome of the right lobe of liver has not significantly changed. Gallbladder is distended without evidence of associated inflammation. There is no evidence of pancreatic, adrenal gland or focal splenic abnormality. Occasional calcified granulomas are seen in the spleen. There is good perfusion to the kidneys bilaterally. Multiple right renal cysts are not appreciable changed. There is no evidence of hydronephrosis. Bifurcated aortoiliac stent graft is noted. Celiac trunk and superior mesenteric arteries appear widely patent. There is mural thickening present within the distal descending and sigmoid colon with surrounding edema and inflammation. There is no evidence of pneumoperitoneum or organized fluid collection to indicate perforation or abscess. Bladder wall is thickened with intraluminal Anne catheter balloon present. IMPRESSION: Distal colonic mural thickening is consistent with colitis. This is most likely infectious colitis. There is no secondary sign to indicate bowel ischemia although clinical correlation is recommended. There is also significant mural thickening within the urinary bladder suggestive of cystitis. Dictated on workstation # [id number] Dict: 03/02/23816 Trans: 03/02/23 0844 [id number] Interpreted by: VIPUL MEDINA MD Electronically signed by: [facility] [place] NAME: NAVEEN EVRA [facility] REC#: [id number] PT STATUS: REG ER : 1945 PHYSICIAN: MAXIMINO SPARKS MD ADMIT DATE: 03/02/23/ER FS Draft Date of Exam:03/02/23 CHEST 1 VIEW AP/PA ONLY Indication: Altered mental status Portable AP upright view of the chest is obtained with comparison made to study of 11/01/2022 Heart size and pulmonary vascularity are within normal limits. There is mild basilar atelectasis and/or pneumonitis. No consolidation, pneumothorax or pleural fluid is seen. Advanced degenerative findings are seen in the shoulders. Surgical residual is seen in the right apex. IMPRESSION: Increasing basilar atelectasis and/or pneumonitis without other acute abnormality or adverse change. Dictated on workstation # [id number] Dict: 03/02/23821 Trans: 03/02/23 0839 [facility] [id number] Interpreted by: VIPUL MEDINA MD Electronically signed by: [facility] [place] NAME: NAVEEN VERA [facility] REC#: [id number] PT STATUS: REG ER : 1945 PHYSICIAN: TELMA ANDREW DO ADMIT DATE: 03/02/23/ER FS Draft Date of Exam:03/02/23 CT HEAD WO PROCEDURE: CT head without contrast. TECHNIQUE: Multiple contiguous axial images were obtained through the brain without the use of intravenous contrast. Auto Exposure Controls were utilized during the CT exam to meet ALARA standards for radiation dose reduction. INDICATION: Altered mental status. COMPARISON: 11/01/2022. FINDINGS: Moderate to advanced generalized parenchymal volume loss. No intracranial hemorrhage, mass effect, hydrocephalus or extra-axial fluid collections. No CT evidence of territorial infarction. Osseous structures are intact. Mucosal thickening in the ethmoid sinuses. The visualized mastoids are clear. IMPRESSION: No acute intracranial CT findings. Dictated on workstation # [id number] Dict: 03/02/23 0708 Trans: 03/02/23 0711 [facility] [id number] Interpreted by: ALMA EHRNÁNDEZ MD Electronically signed by: (MAXIMINO SPARKS MD) Departure Impression Primary Impression: Lower GI bleed Additional Impressions: Ischemic colitis Dehydration Disposition: XFER SHT-TRM HOSP Condition: Stable Admissions Decision to Admit/Date: Mar 02, 2023 Time/Decision to Admit Time: 08:00 (MAXIMINO SPARKS MD) Transfer Transfer Reason: Exceeds level of care Time Spoke to Accepting Phy: 09:19 Transfer Progress Notes Discussed with Dr Berry, at [facility] and accepted for admission Transfer Facility: [facility] Method of Transfer: EMS (MAXIMINO SPARKS MD) Departure-Patient Inst. Referrals: HERNAN RUANO APRN (PCP) Primary Care Physician [facility] (Family) Primary Care Physician TELMA ANDREW DO Mar 02, 2023 06:28 MAXIMINO SPARKS MD Mar 02, 2023 07:59
[2023-03-02] MEDS ORDERED: PANTOPRAZOLE 40 MG (PROTONIX) VIAL IV ONE (06:30)
[2023-03-02 06:41] LABS: BASOPHILS % (AUTO) 0 % (0-10); EOSINOPHILS % (AUTO) 0 % (0-10); HEMATOCRIT 39 % (40-54); HEMOGLOBIN 12.8 g/dL (13.3-17.7); LYMPHOCYTES # (AUTO) 1.2 10^3/uL (1.0-4.0); LYMPHOCYTES % (AUTO) 8 % (12-44); MEAN CORPUSCULAR HEMOGLOBIN 28 pg (25-34); MEAN CORPUSCULAR HGB CONC 33 g/dL (32-36); MEAN CORPUSCULAR VOLUME 85 fL (80-99); MEAN PLATELET VOLUME 9.4 fL (9.0-12.2); MONOCYTES # (AUTO) 1.5 10^3/uL (0.0-1.0); MONOCYTES % (AUTO) 10 % (0-12); NEUTROPHILS # (AUTO) 12.2 10^3/uL (1.8-7.8); NEUTROPHILS % (AUTO) 82 % (42-75); PLATELET COUNT 133 10^3/uL (130-400)
[2023-03-02 07:00] LABS: ATYPICAL LYMPHOCYTES 2 %; BAND NEUTROPHILS 8 %; BASOPHILS % (MANUAL) 1 %; EOSINOPHILS % (MANUAL) 1 %; LYMPHOCYTES % (MANUAL) 3 %; MONOCYTES % (MANUAL) 5 %; NEUTROPHILS % (MANUAL) 78 %; PLATELET ESTIMATE NORMAL; REACTIVE LYMPHOCYTES 2 %
[2023-03-02 07:01] LABS: ELLIPT/OVALOCYTES SLIGHT; RBC MORPH ABNORMAL
[2023-03-02 07:02] LABS: PROTHROMBIN TIME PATIENT 13.7 SEC (12.2-14.7)
[2023-03-02 07:04] LABS: ALBUMIN 3.7 GM/DL (3.2-4.5); BILIRUBIN,TOTAL 0.7 MG/DL (0.1-1.0); CALCIUM 9.5 MG/DL (8.5-10.1); CREATININE SERUM 1.46 MG/DL (0.60-1.30); POTASSIUM 4.4 MMOL/L (3.6-5.0); TOTAL PROTEIN 6.4 GM/DL (6.4-8.2)
--- NOTE | 2023-03-02 07:11 | Diagnostic Imaging Report ---
PROCEDURE: CT head without contrast. TECHNIQUE: Multiple contiguous axial images were obtained through the brain without the use of intravenous contrast. Auto Exposure Controls were utilized during the CT exam to meet ALARA standards for radiation dose reduction. INDICATION: Altered mental status. COMPARISON: 11/01/2022. FINDINGS: Moderate to advanced generalized parenchymal volume loss. No intracranial hemorrhage, mass effect, hydrocephalus or extra-axial fluid collections. No CT evidence of territorial infarction. Osseous structures are intact. Mucosal thickening in the ethmoid sinuses. The visualized mastoids are clear. IMPRESSION: No acute intracranial CT findings. Dictated by: Dictated on workstation # [id number]
[2023-03-02] MEDS ORDERED: LIDOCAINE UROJET 2% GEL 10 ML PKG ONE (07:25)
[2023-03-02] MEDS ORDERED: PANTOPRAZOLE INJECTION 200 MG in NS (IVPB) 100 ML IV STA (07:25)
[2023-03-02] MEDS ORDERED: LIDOCAINE UROJET 2% GEL 10 ML PKG TOP ONE (07:30)
[2023-03-02] MEDS ORDERED: IOHEXOL 350 MG/ML 100 ML (OMNIPAQUE 350) VIAL IV ONE (07:45)
[2023-03-02] MEDS ORDERED: HOLD METFORMIN - RECEIVED CONTRAST 20 ML VIAL IV SCH (07:45)
[2023-03-02] MEDS ORDERED: NS 100 ML (IVPB) BAG IV ONE (07:45)
[2023-03-02 07:51] LABS: MAGNESIUM 2.1 MG/DL (1.6-2.4)
[2023-03-02 07:52] LABS: LIPASE 21 U/L (8-78)
[2023-03-02 07:54] LABS: BILIRUBIN,URINE NEGATIVE (NEGATIVE); CLARITY,URINE CLEAR; COLOR,URINE YELLOW; GLUCOSE, URINE (UA) NEGATIVE (NEGATIVE); KETONES,URINE NEGATIVE (NEGATIVE); LEUKOCYTE ESTERASE ,URINE NEGATIVE (NEGATIVE); NITRITE,URINE NEGATIVE (NEGATIVE); PH,URINE 6.5 (5-9); PROTEIN,URINE TRACE (NEGATIVE)
[2023-03-02 08:01] LABS: BACTERIA,URINE TRACE /HPF; SQUAMOUS EPITHELIAL CELL,UR 0-2 /HPF
[2023-03-02] MEDS ORDERED: PANTOPRAZOLE IV STA (08:01)
[2023-03-02] MEDS ORDERED: NS IV STA (08:01)
[2023-03-02] MEDS ORDERED: PANTOPRAZOLE 40 MG (PROTONIX) VIAL ONE (08:09)
[2023-03-02] MEDS ORDERED: NS (IVPB) 50 ML ONE (08:10)
--- NOTE | 2023-03-02 08:39 | Diagnostic Imaging Report ---
Indication: Altered mental status Portable AP upright view of the chest is obtained with comparison made to study of 11/01/2022 Heart size and pulmonary vascularity are within normal limits. There is mild basilar atelectasis and/or pneumonitis. No consolidation, pneumothorax or pleural fluid is seen. Advanced degenerative findings are seen in the shoulders. Surgical residual is seen in the right apex. IMPRESSION: Increasing basilar atelectasis and/or pneumonitis without other acute abnormality or adverse change. Dictated by: Dictated on workstation # [id number]
--- NOTE | 2023-03-02 08:44 | Diagnostic Imaging Report ---
PROCEDURE: CT abdomen and pelvis with contrast. TECHNIQUE: Multiple contiguous axial images were obtained through the abdomen and pelvis after administration of intravenous contrast. Auto Exposure Controls were utilized during the CT exam to meet ALARA standards for radiation dose reduction. All CT scans use one or more of the following dose optimizing techniques: automated exposure control, MA and/or KvP adjustment based on patient size and exam type or iterative reconstruction. INDICATION: Altered mental status with abdominal pain. COMPARISON: 11/01/2022 FINDINGS: There has been an increase in coarse interstitial markings in the lung bases which may be related to fibrosis and possible mild superimposed pneumonitis. Presumed cyst or other benign nodule in the dome of the right lobe of liver has not significantly changed. Gallbladder is distended without evidence of associated inflammation. There is no evidence of pancreatic, adrenal gland or focal splenic abnormality. Occasional calcified granulomas are seen in the spleen. There is good perfusion to the kidneys bilaterally. Multiple right renal cysts are not appreciable changed. There is no evidence of hydronephrosis. Bifurcated aortoiliac stent graft is noted. Celiac trunk and superior mesenteric arteries appear widely patent. There is mural thickening present within the distal descending and sigmoid colon with surrounding edema and inflammation. There is no evidence of pneumoperitoneum or organized fluid collection to indicate perforation or abscess. Bladder wall is thickened with intraluminal Anne catheter balloon present. IMPRESSION: Distal colonic mural thickening is consistent with colitis. This is most likely infectious colitis. There is no secondary sign to indicate bowel ischemia although clinical correlation is recommended. There is also significant mural thickening within the urinary bladder suggestive of cystitis. Dictated by: Dictated on workstation # [id number]
[2023-03-02] MEDS ORDERED: PIPERACILLIN SODIUM/TAZOBACTAM 4.5 GM in NS (IVPB) 100 ML IV ONE (09:00)
[2023-03-02 11:49] VITALS: BP 122/54
== END 2023-03-02 11:51 | disposition short-term general hospital (02) ==
LOC: EDUNIT# 06:20 → ER FS 06:21
DX: K92.2 Gastrointestinal hemorrhage, unspecified (principal); K55.9 Vascular disorder of intestine, unspecified; E86.0 Dehydration; Z79.82 Long term (current) use of aspirin
CPT/HCPCS: 36415; 51702; 70450; 71045; 74177; 80053; 81000; 82274; 83605; 83690; 83735; 84484; 85007; 85027; 85610; 87040; Q9967

== ENCOUNTER 2023-07-22 17:13 | Emergency (ER) | payer MEDICARE ==
[~2023-07-22] VITALS: Ht 177.8 cm; Wt 81.6 kg
--- NOTE | 2023-07-22 17:55 | ED Hip Pain/Injury ---
General Chief Complaint: Hip/Pelvic Problems Stated Complaint: FALL; HIP PAIN Nursing Triage Note: PT TO ROOM [facility] WITH C/O RIGHT HIP/KNEE PAIN AFTER FALLING X[employer]MIN [employer]. PT FROM [facility]. PT DENIES HEAD/NECK/BACK PAIN. PT DENIES LOC. Source: patient, EMS, RN notes reviewed Exam Limitations: other (Dementia) History of Present Illness Date Seen by Provider: Jul 22, 2023 Time Seen by Provider: 17:13 Initial Comments 78-year-old male patient with history of severe dementia and resident of snf brought in by EMS because of a fall and pain in right hip. senior living reported that he had a witnessed fall from a standing position and was not able to get up. Patient did not head injury or loss of consciousness and acting like his usual according to snf and EMS report. EMS reported he was on the ground with flexion of his knee and not able to bearing weight. Patient stated he rolled over from his bed and had a fall and denies any pain. Patient is oriented x 1 and unable to give more history. Allergies and Home Medications Allergies Coded Allergies: No Known Drug Allergies (Unverified , 11/01/22) Patient Home Medication List Home Medication List Reviewed: Yes Review of Systems Constitutional: no symptoms reported EENTM: no symptoms reported Respiratory: no symptoms reported Cardiovascular: no symptoms reported Gastrointestinal: no symptoms reported Genitourinary: no symptoms reported Musculoskeletal: see HPI Skin: no symptoms reported Psychiatric/Neurological: No Symptoms Reported All Other Systems Reviewed Negative Unless Noted: Yes Past Iirohlm-Xmcrew-Iktufm Hx Patient Social History Tobacco Use?: No Smoking Status: Never a Smoker Use of E-Cig and/or Vaping dev: No Use of E-Cig and/or Vaping Philippe: Never a User Substance use?: No Alcohol Use?: No Pt feels they are or have been: No Past Medical History Surgery/Hospitalization HX: Dementia, Peripheral arterial disease, Hypertension, BPH, Hyperchlesterolemia, GI Bleed October 2022, COPD Physical Exam Vital Signs Vital Signs - First Documented 07/22/23 07/22/23 17:13 18:05 Temp 36.8 Pulse 55 Resp 17 B/P (MAP) 165/78 (107) Pulse Ox 98 O2 Delivery Room Air Capillary Refill : Less Than 3 Seconds Height, Weight, BMI Height: '" Weight: lbs. oz. kg; 25.00 BMI Method: General Appearance: No Apparent Distress HEENT: PERRL/EOMI Neck: Full Range of Motion, Normal Inspection Cardiovascular: Regular Rate, Rhythm, No Edema, No Gallop, No JVD Respiratory: Chest Non Tender, Lungs Clear, Normal Breath Sounds, No Accessory Muscle Use Gastrointestinal: Normal Bowel Sounds, No Organomegaly, No Pulsatile Mass, Soft Back: Normal Inspection Extremity: Normal Capillary Refill, Other (Holding right upper extremity and some mild flexion position, no obvious injury, no external rotation or shortening.) Progress/Results/Core Measures Results/Orders My Orders Orders - KRISTOPHER LUCIA MD Pelvis With Right Hip 2-3 View (07/22/23 17:19) Vital Signs/I&O 07/22/23 07/22/23 17:13 18:05 Temp 36.8 36.5 Pulse 55 61 Resp 17 17 B/P (MAP) 165/78 (107) 159/81 Pulse Ox 98 O2 Delivery Room Air Room Air Blood Pressure Mean: 107 Progress Progress Note : Progress Note Resident of snf with severe dementia brought in by EMS because of a fall and pain in right hip. Patient refused to bend his knee. Patient had interpreted right hip and pelvis x-ray by me and did not show fracture or dislocation. Patient ambulated with walker was able to bearing weight. Plan to discharge patient home to the snf with fall precaution instruction. Diagnostic Imaging Diagonstic Imaging: Xray Plain Films/CT/US/NM/MRI: hip Comments Right hip and pelvis x-ray interpreted by me and did not show acute fracture or dislocation. Right hip and pelvis x-ray interpreted by radiologist and reviewed by me and showed: [facility] [place] NAME: NAVEEN VERA [facility] REC#: [id number] PT STATUS: REG ER : 1945 PHYSICIAN: KRISTOPHER LUCIA MD ADMIT DATE: 07/22/23/ER FS Draft Date of Exam:07/22/23 PELVIS WITH RIGHT HIP 2-3 VIEW EXAMINATION: Right hip unilateral 2 or 3 views (w/pelvis when done) HISTORY: Fall, pain. EXAMINATION: Pelvis and right hip, 07/22/2023. FINDINGS: 3 views of the right hip. There are coils and clips as well as a stent in the visualized pelvis and abdomen. No acute fracture or dislocation. IMPRESSION: No acute osseous abnormality. Dictated on workstation # [id number] Dict: 07/22/23 1740 Trans: 07/22/23 1813 [id number] [id number] Interpreted by: BERT HERNANDEZ MD Electronically signed by: Departure Impression Primary Impression: Fall at snf Qualified Codes: W19.XXXA - Unspecified fall, initial encounter; Y92.129 - Unspecified place in snf as the place of occurrence of the external cause Additional Impression: Dementia Qualified Codes: F03.90 - Unspecified dementia, unspecified severity, without behavioral disturbance, psychotic disturbance, mood disturbance, and anxiety Disposition: 03 XFER SNF Condition: Stable Departure-Patient Inst. Decision time for Depature: 17:54 Referrals: HERNAN RUANO APRN (PCP) Primary Care Physician [facility] (Family) Primary Care Physician Patient Instructions: Preventing falls in adults Add. Discharge Instructions: Continue current medications Follow-up with primary care physician or return to ER as needed All discharge instructions reviewed with patient and/or family. Voiced understanding. KRISTOPHER LUCIA MD Jul 22, 2023 17:55
[2023-07-22 18:05] VITALS: BP 159/81
--- NOTE | 2023-07-22 18:14 | Diagnostic Imaging Report ---
EXAMINATION: Right hip unilateral 2 or 3 views (w/pelvis when done) HISTORY: Fall, pain. EXAMINATION: Pelvis and right hip, 07/22/2023. FINDINGS: 3 views of the right hip. There are coils and clips as well as a stent in the visualized pelvis and abdomen. No acute fracture or dislocation. IMPRESSION: No acute osseous abnormality. Dictated by: Dictated on workstation # [id number]
== END 2023-07-22 18:05 ==
LOC: EDUNIT# 17:13 → ER FS 17:14
DX: F03.90 Unspecified dementia, unspecified severity, without behavioral disturbance, psychotic disturbance, mood disturbance, and anxiety (principal); W06.XXXA Fall from bed, initial encounter; Y92.129 Unspecified place in nursing home as the place of occurrence of the external cause
CPT/HCPCS: 73502